=== PATIENT | male | born 1950 | race Caucasian/White ===

== ENCOUNTER → 2023-12-08 | Outpatient (CLI) | payer BC ==
[~2023-12-08] MED LIST: IOHEXOL 300 MG/ML 100 ML VIAL IV ONE
== END | disposition home or self-care (01) ==
LOC: CT 00:40 → LAB 00:40 → CT 13:00
PROVIDERS: ATTEND Surgery
DX: K42.9 Umbilical hernia without obstruction or gangrene (principal); I25.10 Atherosclerotic heart disease of native coronary artery without angina pectoris; K76.0 Fatty (change of) liver, not elsewhere classified; K44.9 Diaphragmatic hernia without obstruction or gangrene

== ENCOUNTER → 2024-01-04 | Outpatient (CLI) | payer BC | END | disposition home or self-care (01) | LOC: RAD 12:29 | PROVIDERS: ATTEND Internal Medicine | DX: Z01.818 Encounter for other preprocedural examination (principal) ==

== ENCOUNTER → 2024-01-31 | Day surgery (SDC) | payer BC ==
[2024-01-28 14:41] VITALS: BP 160/98
[~2024-01-31] VITALS: Ht 180.3 cm; Wt 14.5 kg
[~2024-01-31] MED LIST changes: +Dexamethasone Sodium Phospha 20 MG/5 ML VIAL IV ONE; +GLYCOPYRROLATE 0.4 MG/2 ML VIAL IV ONE; +HYDROCODONE-AC1 EAC1 PO; -IOHEXOL 300 MG/ML 100 ML VIAL IV ONE; +JANUVIA100 MG PO; +Ketorolac Tromethamine 30 MG/ML VIAL IV ONE; +MEDI-FIRST ASP325 MG PO; +Midazolam Hydrochloride 2 MG/2 ML VIAL IV ONE; +NEURONTIN800 MG PO; +Neostigmine Methylsulfate 3 MG/3 ML SYRINGE IV ONE; +Ondansetron Hydrochloride 4 MG/2 ML VIAL IV ONE; +PROPOFOL 200 MG/20 ML VIAL IV ONE; +ROCURONIUM BROMIDE 50 MG/5 ML SYRINGE IV ONE; +SEVOFLURANE 250 ML BOT INH ONE; +SODIUM CHLORIDE 0.9% 1,000 ML IV ONE; +SODIUM CHLORIDE 0.9% 1,000 ML IV SCH; +TAMSULOSIN HCL0.4 MG PO; +ceFAZolin sodium 2 GM in SYRINGE INFUSION 20 ML IV ONE; +ceFAZolin sodium/sodium chlor 20 ML IV ONE
[2024-01-31 06:56] LABS: BILIRUBIN Negative (Negative); BLOOD Negative (Negative); CLARITY Clear (Clear); COLOR Yellow (Yellow); GLUCOSE Negative (Negative); KETONE Negative (Negative); LEUKO ESTERASE Negative (Negative); NITRITE Negative (Negative)
[2024-01-31 07:27] VITALS: BP 122/77
[2024-01-31 07:28] LABS: BACTERIA TRACE; RBC 0-2 rbc/hpf (0-2); WBC 0-2 wbc/hpf (0-5)
[2024-01-31 09:07] VITALS: BP 165/91
[2024-01-31 09:22] VITALS: BP 150/92
[2024-01-31 09:37] VITALS: BP 146/93
[2024-01-31 09:52] VITALS: BP 146/92
[2024-01-31 10:07] VITALS: BP 142/88
== END | disposition home or self-care (01) ==
LOC: SDC 01-27 14:00
PROVIDERS: ATTEND Surgery
DX: K42.9 Umbilical hernia without obstruction or gangrene (principal); E11.9 Type 2 diabetes mellitus without complications; E03.9 Hypothyroidism, unspecified; G47.33 Obstructive sleep apnea (adult) (pediatric); E66.01 Morbid (severe) obesity due to excess calories; Z96.641 Presence of right artificial hip joint; Z87.438 Personal history of other diseases of male genital organs; Z98.890 Other specified postprocedural states; Z79.82 Long term (current) use of aspirin; Z79.890 Hormone replacement therapy; Z79.899 Other long term (current) drug therapy; Z88.8 Allergy status to other drugs, medicaments and biological substances; Z80.9 Family history of malignant neoplasm, unspecified

== ENCOUNTER 2024-08-01 10:26 | Emergency (ER) | payer BC ==
[~2024-08-01 10:26] MED LIST changes: -Dexamethasone Sodium Phospha 20 MG/5 ML VIAL IV ONE; -GLYCOPYRROLATE 0.4 MG/2 ML VIAL IV ONE; -Ketorolac Tromethamine 30 MG/ML VIAL IV ONE; -Midazolam Hydrochloride 2 MG/2 ML VIAL IV ONE; -Neostigmine Methylsulfate 3 MG/3 ML SYRINGE IV ONE; -Ondansetron Hydrochloride 4 MG/2 ML VIAL IV ONE; -PROPOFOL 200 MG/20 ML VIAL IV ONE; -ROCURONIUM BROMIDE 50 MG/5 ML SYRINGE IV ONE; -SEVOFLURANE 250 ML BOT INH ONE; -SODIUM CHLORIDE 0.9% 1,000 ML IV ONE; -SODIUM CHLORIDE 0.9% 1,000 ML IV SCH; -ceFAZolin sodium 2 GM in SYRINGE INFUSION 20 ML IV ONE; -ceFAZolin sodium/sodium chlor 20 ML IV ONE
== END 2024-08-01 11:44 | disposition home or self-care (01) ==
LOC: ED 10:26
DX: R58 Hemorrhage, not elsewhere classified (principal); Z88.1 Allergy status to other antibiotic agents; Z88.6 Allergy status to analgesic agent; Z98.890 Other specified postprocedural states

== ENCOUNTER 2024-08-23 09:53 | Emergency (ER) | payer BC ==
[~2024-08-23] VITALS: Ht 180.3 cm; Wt 137.9 kg
[2024-08-23] MEDS ORDERED: RYBELSUS14 MG PO (10:05)
[2024-08-23] MEDS ORDERED: LEVOTHYROXINE150 MCG PO (10:05)
[2024-08-23] MEDS ORDERED: CEPHALEXIN500 M1 PO (15:36)
[2024-08-23] MEDS ORDERED: VIBRAMYCIN100 MG PO (15:36)
== END 2024-08-23 15:52 | disposition home or self-care (01) ==
LOC: ED 09:53
DX: L03.116 Cellulitis of left lower limb (principal); Z88.1 Allergy status to other antibiotic agents; Z88.6 Allergy status to analgesic agent; Z98.890 Other specified postprocedural states

== ENCOUNTER → 2024-09-01 | Outpatient (CLI) | payer BC ==
[~2024-09-01] MED LIST changes: +CEPHALEXIN500 M1 PO; +LEVOTHYROXINE150 MCG PO; +RYBELSUS14 MG PO; +VIBRAMYCIN100 MG PO
== END | disposition home or self-care (01) ==
LOC: WOUNDCARE 02:25
PROVIDERS: ATTEND Nurse Practitioner Family
DX: S80.822A Blister (nonthermal), left lower leg, initial encounter (principal); E11.622 Type 2 diabetes mellitus with other skin ulcer; I83.028 Varicose veins of left lower extremity with ulcer other part of lower leg; L97.821 Non-pressure chronic ulcer of other part of left lower leg limited to breakdown of skin; I83.891 Varicose veins of right lower extremity with other complications; L53.9 Erythematous condition, unspecified; I87.8 Other specified disorders of veins; R60.9 Edema, unspecified; Z96.649 Presence of unspecified artificial hip joint; Z79.82 Long term (current) use of aspirin; Z79.899 Other long term (current) drug therapy; X58.XXXA Exposure to other specified factors, initial encounter; Y93.89 Activity, other specified; Y92.89 Other specified places as the place of occurrence of the external cause; Y99.8 Other external cause status

== ENCOUNTER → 2024-09-08 | Outpatient (CLI) | payer BC | END | disposition home or self-care (01) | LOC: WOUNDCARE 01:09 | PROVIDERS: ATTEND Nurse Practitioner Family | DX: S80.822D Blister (nonthermal), left lower leg, subsequent encounter (principal); E11.622 Type 2 diabetes mellitus with other skin ulcer; I83.028 Varicose veins of left lower extremity with ulcer other part of lower leg; L97.821 Non-pressure chronic ulcer of other part of left lower leg limited to breakdown of skin; I83.891 Varicose veins of right lower extremity with other complications; L53.9 Erythematous condition, unspecified; I87.8 Other specified disorders of veins; L60.8 Other nail disorders; M79.675 Pain in left toe(s); M79.674 Pain in right toe(s); R60.9 Edema, unspecified; B35.1 Tinea unguium; Z79.82 Long term (current) use of aspirin; Z79.899 Other long term (current) drug therapy; X58.XXXD Exposure to other specified factors, subsequent encounter ==

== ENCOUNTER → 2024-10-20 | Outpatient (CLI) | payer BC | LOC: WOUNDCARE 13:32 | PROVIDERS: ATTEND Nurse Practitioner Family | DX: S80.822D Blister (nonthermal), left lower leg, subsequent encounter (principal); E11.622 Type 2 diabetes mellitus with other skin ulcer; I83.028 Varicose veins of left lower extremity with ulcer other part of lower leg; L97.821 Non-pressure chronic ulcer of other part of left lower leg limited to breakdown of skin; I83.891 Varicose veins of right lower extremity with other complications; L53.9 Erythematous condition, unspecified; I87.8 Other specified disorders of veins; L60.8 Other nail disorders; M79.675 Pain in left toe(s); M79.674 Pain in right toe(s); R60.9 Edema, unspecified; B35.1 Tinea unguium; Z79.82 Long term (current) use of aspirin; Z79.899 Other long term (current) drug therapy; X58.XXXD Exposure to other specified factors, subsequent encounter ==

== ENCOUNTER → 2025-02-22 | Outpatient (CLI) | payer BC | END | disposition home or self-care (01) | LOC: WOUNDCARE 02:33 | PROVIDERS: ATTEND Nurse Practitioner Family | DX: E11.622 Type 2 diabetes mellitus with other skin ulcer (principal); I83.028 Varicose veins of left lower extremity with ulcer other part of lower leg; L97.821 Non-pressure chronic ulcer of other part of left lower leg limited to breakdown of skin; I83.891 Varicose veins of right lower extremity with other complications; I87.2 Venous insufficiency (chronic) (peripheral); L60.2 Onychogryphosis; L53.9 Erythematous condition, unspecified; B35.1 Tinea unguium; R60.9 Edema, unspecified; Z98.890 Other specified postprocedural states; Z79.82 Long term (current) use of aspirin; Z79.899 Other long term (current) drug therapy ==

== ENCOUNTER → 2025-03-16 | Outpatient (CLI) | payer BC | LOC: WOUNDCARE 03:01 | PROVIDERS: ATTEND Nurse Practitioner Family | DX: I83.028 Varicose veins of left lower extremity with ulcer other part of lower leg (principal); E11.622 Type 2 diabetes mellitus with other skin ulcer; L97.822 Non-pressure chronic ulcer of other part of left lower leg with fat layer exposed; I87.2 Venous insufficiency (chronic) (peripheral); L60.2 Onychogryphosis; L53.9 Erythematous condition, unspecified; B35.1 Tinea unguium; R60.9 Edema, unspecified; Z98.890 Other specified postprocedural states; Z79.82 Long term (current) use of aspirin; Z79.899 Other long term (current) drug therapy ==

== ENCOUNTER → 2025-04-13 | Outpatient (CLI) | payer BC | LOC: WOUNDCARE 01:57 | PROVIDERS: ATTEND Nurse Practitioner Family | DX: I83.028 Varicose veins of left lower extremity with ulcer other part of lower leg (principal); E11.622 Type 2 diabetes mellitus with other skin ulcer; L97.822 Non-pressure chronic ulcer of other part of left lower leg with fat layer exposed; I87.2 Venous insufficiency (chronic) (peripheral); L60.2 Onychogryphosis; L53.9 Erythematous condition, unspecified; R60.9 Edema, unspecified; B35.1 Tinea unguium; Z96.649 Presence of unspecified artificial hip joint; Z98.890 Other specified postprocedural states; Z79.82 Long term (current) use of aspirin; Z79.899 Other long term (current) drug therapy ==

== ENCOUNTER 2025-07-24 10:25 | Inpatient (IN) | payer BC, MEDICARE ==
[~2025-07-24] VITALS: Ht 180.3 cm; Wt 137.9 kg
[2025-07-24] VITALS (7 sets, daily range): BP systolic 101–151; BP diastolic 71–91
[2025-07-24] MEDS ORDERED: DILTIAZEM HCL IN NACL,ISO-OSM 100 ML IV SCH (11:35)
[2025-07-24] MEDS ORDERED: ROSUVASTATIN CA20 MG PO (12:10)
[2025-07-24 12:16] LABS: BASO # 0.1 10*3/uL (0.0-0.1); BASO % 0.7 % (0.0-1.0); EOS # 0.2 10*3/uL (0.0-0.4); EOS % 2.5 % (1.0-4.0); MEAN CELL VOLUME 87.3 fl (80.0-94.0); MEAN CORPUSCULAR HGB 29.8 pg (27.0-31.0); MEAN PLATELET VOLUME 8.7 fl (9.6-12.3); MONO # 0.7 10*3/uL (0.1-1.0); MONO % 7.1 % (3.0-9.0); NEUT # 6.6 10*3/uL (2.3-7.9); NEUT % 72.1 % (47.0-73.0); NUCLEATED RED BLOOD CELL 0.0 % (0.0-0.0); NUCLEATED RED BLOOD CELL 0.0 10*3/uL (0.0-0.0); PLATELET COUNT AUTOMATED 249 10*3/uL (130-400); RED CELL DISTRI WIDTH 13.2 % (0-14.5)
[2025-07-24 12:41] LABS: BUN 10 mg/dl (9-23); CPK 293 U/L (34-171)
[2025-07-24] MEDS ORDERED: HEPARIN SODIUM 250 ML IV SCH (12:45)
[2025-07-24 14:05] LABS: ACT PARTIAL THROMBO TIME 26.9 SECONDS (20.0-32.1)
[2025-07-24] MEDS ORDERED: BISACODYL 10 MG SUPP R PRN (14:25)
[2025-07-24] MEDS ORDERED: ACETAMINOPHEN 650 MG SUPP R PRN (14:25)
[2025-07-24] MEDS ORDERED: ACETAMINOPHEN 325 MG TAB PO PRN (14:25)
[2025-07-24] MEDS ORDERED: BISACODYL 5 MG TAB PO PRN (14:25)
[2025-07-24] MEDS ORDERED: GABAPENTIN800 MG PO (22:53)
[2025-07-25] VITALS (7 sets, daily range): BP systolic 118–151; BP diastolic 61–87
[2025-07-25 06:20] LABS: BASO # 0.0 10*3/uL (0.0-0.1); BASO % 0.5 % (0.0-1.0); EOS # 0.4 10*3/uL (0.0-0.4); EOS % 4.4 % (1.0-4.0); MEAN CELL VOLUME 89.5 fl (80.0-94.0); MEAN CORPUSCULAR HGB 30.1 pg (27.0-31.0); MEAN PLATELET VOLUME 8.8 fl (9.6-12.3); MONO # 0.7 10*3/uL (0.1-1.0); MONO % 8.4 % (3.0-9.0); NEUT # 5.7 10*3/uL (2.3-7.9); NEUT % 66.0 % (47.0-73.0); NUCLEATED RED BLOOD CELL 0.0 % (0.0-0.0); NUCLEATED RED BLOOD CELL 0.0 10*3/uL (0.0-0.0); PLATELET COUNT AUTOMATED 262 10*3/uL (130-400); RED CELL DISTRI WIDTH 13.2 % (0-14.5)
[2025-07-25 06:32] LABS: BUN 10 mg/dl (9-23); SGPT/ALT 31 U/L (5-49)
[2025-07-25 07:34] LABS: VITAMIN D, 25-HYDROXY 39.0 ng/mL (30-100)
[2025-07-25] MEDS ORDERED: PERFLUTREN PROTEIN-A MICROSPHR 3 ML VIAL IV ONE (09:37)
[2025-07-25] MEDS ORDERED: ASPIRIN 325 MG TAB PO SCH (10:00)
[2025-07-25] MEDS ORDERED: METOPROLOL SUCCINATE XR 50 MG TAB PO SCH (10:20)
[2025-07-25] MEDS ORDERED: APIXABAN 5 MG TAB PO SCH (18:00)
[2025-07-25] MEDS ORDERED: GABAPENTIN 800 MG TAB PO SCH (22:00)
[2025-07-26] VITALS (7 sets, daily range): BP systolic 124–151; BP diastolic 65–93
[2025-07-26 07:05] LABS: BASO # 0.1 10*3/uL (0.0-0.1); BASO % 0.9 % (0.0-1.0); EOS # 0.3 10*3/uL (0.0-0.4); EOS % 4.7 % (1.0-4.0); MEAN CELL VOLUME 90.4 fl (80.0-94.0); MEAN CORPUSCULAR HGB 29.8 pg (27.0-31.0); MEAN PLATELET VOLUME 8.7 fl (9.6-12.3); MONO # 0.5 10*3/uL (0.1-1.0); MONO % 7.5 % (3.0-9.0); NEUT # 4.4 10*3/uL (2.3-7.9); NEUT % 61.9 % (47.0-73.0); NUCLEATED RED BLOOD CELL 0.0 % (0.0-0.0); NUCLEATED RED BLOOD CELL 0.0 10*3/uL (0.0-0.0); PLATELET COUNT AUTOMATED 251 10*3/uL (130-400); RED CELL DISTRI WIDTH 13.2 % (0-14.5)
[2025-07-26 07:17] LABS: BUN 14 mg/dl (9-23)
[2025-07-26] MEDS ORDERED: CLINDAMYCIN HCL 300 MG CAPSULE PO SCH (12:00)
[2025-07-26] MEDS ORDERED: JANUVIA100 MG PO (22:00)
[2025-07-27] VITALS: BP 132/81
[2025-07-27 06:18] LABS: BASO # 0.1 10*3/uL (0.0-0.1); BASO % 0.7 % (0.0-1.0); EOS # 0.3 10*3/uL (0.0-0.4); EOS % 5.1 % (1.0-4.0); MEAN CELL VOLUME 89.2 fl (80.0-94.0); MEAN CORPUSCULAR HGB 30.3 pg (27.0-31.0); MEAN PLATELET VOLUME 8.8 fl (9.6-12.3); MONO # 0.6 10*3/uL (0.1-1.0); MONO % 8.2 % (3.0-9.0); NEUT # 4.5 10*3/uL (2.3-7.9); NEUT % 66.6 % (47.0-73.0); NUCLEATED RED BLOOD CELL 0.0 % (0.0-0.0); NUCLEATED RED BLOOD CELL 0.0 10*3/uL (0.0-0.0); PLATELET COUNT AUTOMATED 225 10*3/uL (130-400); RED CELL DISTRI WIDTH 13.3 % (0-14.5)
[2025-07-27 06:42] LABS: BUN 16 mg/dl (9-23)
[2025-07-27 08:00] VITALS: BP 131/69
[2025-07-27] MEDS ORDERED: PERFLUTREN PROTEIN-A MICROSPHR 3 ML VIAL IV ONE (08:22)
[2025-07-27] MEDS ORDERED: METOPROLOL SUCC50 M1 PO (09:40)
[2025-07-27] MEDS ORDERED: ELIQUIS5 M1 PO (09:40)
[2025-07-27 12:00] VITALS: BP 127/69
[2025-07-27] MEDS ORDERED: ENTRESTO 24 MG1 EACH PO (12:26)
[2025-07-27] MEDS ORDERED: METOPROLOL SUC100 M1 PO (12:26)
[2025-07-27] MEDS ORDERED: VIBRA-TAB100 MG PO (12:27)
[2025-07-27] MEDS ORDERED: SACUBITRIL/VALSARTAN 24 MG-26 MG TABLET PO SCH (18:00)
[2025-07-28] MEDS ORDERED: METOPROLOL SUCCINATE XR 100 MG TAB PO SCH (10:00)
== END 2025-07-27 14:17 | disposition home or self-care (01) | DRG 308 ==
LOC: ED 10:25 → 5E 13:27 → EDHOLD 13:27 → 5E 19:30
PROVIDERS: Emergency Medicine; Student in an Organized Health Care Education/Training Program; ADMIT Internal Medicine; ATTEND Internal Medicine
PROC: 5A09357 Assistance with Respiratory Ventilation, Less than 24 Consecutive Hours, Continuous Positive Airway Pressure (ICD-10-PCS; principal; 2025-07-25)
PROC: 5A09357 Assistance with Respiratory Ventilation, Less than 24 Consecutive Hours, Continuous Positive Airway Pressure (ICD-10-PCS; 2025-07-26)
PROC: 5A09357 Assistance with Respiratory Ventilation, Less than 24 Consecutive Hours, Continuous Positive Airway Pressure (ICD-10-PCS; 2025-07-27)
DX: I48.91 Unspecified atrial fibrillation (principal); J15.9 Unspecified bacterial pneumonia; J98.11 Atelectasis; L03.116 Cellulitis of left lower limb; R55 Syncope and collapse; D64.9 Anemia, unspecified; E03.9 Hypothyroidism, unspecified; I87.2 Venous insufficiency (chronic) (peripheral); Z66 Do not resuscitate; E11.65 Type 2 diabetes mellitus with hyperglycemia; Z79.899 Other long term (current) drug therapy; Z79.01 Long term (current) use of anticoagulants; Z79.2 Long term (current) use of antibiotics; Z88.8 Allergy status to other drugs, medicaments and biological substances; Z91.09 Other allergy status, other than to drugs and biological substances; Z79.82 Long term (current) use of aspirin